=== PATIENT | male | born 1995 | race Hispanic/Latino ===

== ENCOUNTER 2019-06-22 08:12 | Emergency (ER) | payer SELFPAY ==
[2019-06-22] MEDS ORDERED: ASPIRIN 81 MG CHEWABLE TABLET ONE (08:36)
[2019-06-22] MEDS ORDERED: NA CHLORIDE 0.9% 1,000 ML ONE (08:36)
[2019-06-22 08:52] LABS: Absolute Lymphocytes (CBC) 1.9 K/uL (0.7-4.9); Basophils % 0.6 % (0-1.3); Hematocrit 44.3 % (39.6-49.0); Lymphocytes % 23.7 % (15.3-44.8); MPV 8.8 fL (7.6-11.3); RBC Red Blood Cell Count 5.45 M/uL (4.33-5.43)
[2019-06-22 09:06] LABS: Barbiturates NEGATIVE (NEGATIVE); Benzodiazepines NEGATIVE (NEGATIVE); Cocaine NEGATIVE (NEGATIVE); METHAMPHETAM NEGATIVE (NEGATIVE); Methadone NEGATIVE (NEGATIVE); Opiates NEGATIVE (NEGATIVE); Phencyclidine NEGATIVE (NEGATIVE); THC Cannibis POSITIVE (NEGATIVE)
[2019-06-22 09:10] LABS: Protime INR 0.89
[2019-06-22 09:11] LABS: ALT/SGPT 35 U/L (12-78); AST/SGOT 17 U/L (15-37); Alkaline Phosphatase 113 U/L (45-117); BUN Blood Urea Nitrogen 16 mg/dL (7-18); Bicarbonate 26 mmol/L (21-32); Bilirubin Direct < 0.1 mg/dL (0-0.2); Bilirubin Total 0.5 mg/dL (0.2-1.0); Glucose Level 120 mg/dL (74-106); Magnesium 2.2 mg/dL (1.8-2.4); NT PRO-BNP 6 pg/mL (<125); Potassium 4.2 mmol/L (3.5-5.1); Protein, Total 7.5 g/dL (6.4-8.2); Sodium Level 141 mmol/L (136-145); Troponin (Emerg Dept Use Only) < 0.02 ng/mL (0.0-0.045)
--- NOTE | 2019-06-22 09:11 | RAD REPORT ---
EXAM DESCRIPTION: Scott Single View06/22/2019 8:43 am CLINICAL HISTORY: Shortness of breath COMPARISON: 2018 FINDINGS: The lungs appear clear of acute infiltrate. The heart is normal size IMPRESSION: No acute abnormalities displayed
--- NOTE | 2019-06-22 09:25 | ER ---
Nurse's Notes [facility] Name: Justin Pineda Age: 24 yrs Sex: Male : 1995 Arrival Date: 06/22/2019 Time: 08:15 Bed 19 Private MD: Unknown, Unknown Diagnosis: Other chest pain;Essential (primary) hypertension Presentation: 06/22 08:22 Presenting complaint: Sudden SOB and substernal chest pain that woke him up at approx hb 0430 today. Hx of HTN. Denies cough. Transition of care: patient was not received from another setting of care. Onset of symptoms was June 22, 2019 at 04:30. Risk Assessment: Do you want to hurt yourself or someone else? Patient reports no desire to harm self or others. Initial Sepsis Screen: Does the patient meet any 2 criteria? No. Patient's initial sepsis screen is negative. Does the patient have a suspected source of infection? No. Patient's initial sepsis screen is negative. Care prior to arrival: None. 08:22 Method Of Arrival: Ambulatory hb 08:22 Acuity: YOHANA 3 hb Triage Assessment: 08:24 General: Appears in no apparent distress. Behavior is calm, cooperative. Pain: Pain hb currently is 7 out of 10 on a pain scale. EENT: No signs and/or symptoms were reported regarding the EENT system. Neuro: Level of Consciousness is awake, alert, obeys commands, Oriented to person, place, time, situation. Cardiovascular: Reports chest pain, shortness of breath, Heart tones S1 S2 present Capillary refill < 3 seconds Patient's skin is warm and dry. Respiratory: Airway is patent Respiratory effort is even, unlabored, Respiratory pattern is regular, symmetrical, Breath sounds are clear bilaterally. GI: No signs and/or symptoms were reported involving the gastrointestinal system. : No signs and/or symptoms were reported regarding the genitourinary system. Derm: Skin is intact, is healthy with good turgor, Skin is pink, warm \T\ dry. Musculoskeletal: No signs and/or symptoms reported regarding the musculoskeletal system. Historical: - Allergies: 08:24 No Known Allergies; hb - Home Meds: 08:24 unknown HTN med [Active]; hb - PMHx: 08:24 Hypertension; hb - PSHx: 08:24 None; hb - Immunization history:: Adult Immunizations up to date. - Social history:: Smoking status: Patient/guardian denies using tobacco. - Ebola Screening: : No symptoms or risks identified at this time. - Family history:: not pertinent. Screenin:26 Abuse screen: Denies threats or abuse. Denies injuries from another. Nutritional hb screening: No deficits noted. Tuberculosis screening: No symptoms or risk factors identified. Fall Risk None identified. Assessment: 08:26 General: see triage assessment. hb Vital Signs: 08:25 BP 159 / 91; Pulse 91; Resp 16; Temp 98.2; Pulse Ox 100% on R/A; Weight 81.65 kg; hb Height 5 ft. 9 in. (175.26 cm); Pain 7/10; 09:32 BP 135 / 80; Pulse 77; Resp 16; Temp 98.2; Pulse Ox 100% on R/A; sg 09:50 BP 130 / 77; Pulse 70; Resp 16; Pulse Ox 100% on R/A; Pain 2/10; sg 08:25 Body Mass Index 26.58 (81.65 kg, 175.26 cm) hb ED Course: 08:15 Patient arrived in ED. ag5 08:15 Unknown, Unknown is Private Physician. ag5 08:16 Reji Merlos MD is Attending Physician. james 08:22 Phyllis Meng, RN is Primary Nurse. hb 08:23 Triage completed. hb 08:25 Arm band placed on. hb 08:26 Patient has correct armband on for positive identification. Bed in low position. Call hb light in reach. Side rails up X 1. monitoring analyst on. Pulse ox on. NIBP on. 08:26 Patient maintains SpO2 saturation greater than 95% on room air. hb 08:37 Primary Nurse role handed off by Phyllis Meng, RN sg 08:37 Jean-Claude Mccray, RN is Primary Nurse. sg 08:43 Inserted saline lock: 20 gauge in right antecubital area, using aseptic technique. hb Blood collected. 08:45 XRAY Chest (1 view) In Process Unspecified. EDMS 08:50 Urine collected: clean catch specimen, clear, sujata colored, EKG done, by test tech. [email or web address] reviewed by Reji Merlos MD. 08:53 EKG done, by test tech. reviewed by Reji Merlos MD. tc 09:23 Farhan Cordova MD is Referral Physician. james 09:48 Awaiting transportation. sg 09:48 No provider procedures requiring assistance completed. IV discontinued, intact, sg bleeding controlled, No redness/swelling at site. Pressure dressing applied. Administered Medications: 08:47 Drug: NS 0.9% 1000 ml Route: IV; Rate: 125 ml/hr; Site: right antecubital; hb 08:47 Drug: Aspirin Chewable Tablet 162 mg Route: PO; hb 09:48 Not Given (Physician Discretion): Norvasc 5 mg PO once sg Outcome: 09:23 Discharge ordered by . james 09:48 Discharged to home ambulatory, with family. sg 09:48 Condition: good 09:48 Discharge instructions given to patient, Instructed on discharge instructions, follow up and referral plans. medication usage, safety practices, Demonstrated understanding of instructions, follow-up care, medications, Prescriptions given X 1, assistance via [employer] with Mary Carmen #[id number] 09:56 Patient left the ED. sg Signatures: Dispatcher [employer] EDJuwan Resendez [email or web address] Jean-Claude Mccray RN RN Reji Skelton MD MD cha Callis, Tiffany, port warden EKG Ttc Phyllis Meng RN RN Keith, Saniya ag5
[2019-06-22] MEDS ORDERED: AMLODIPINE 5 MG TAB ONE (09:26)
--- NOTE | 2019-06-22 09:26 | EDPHYS ---
Physician Documentation [facility] Name: Justin Pineda Age: 24 yrs Sex: Male : 1995 Arrival Date: 06/22/2019 Time: 08:15 Bed 19 Private MD: Unknown, Unknown ED Physician Reji Merlos HPI: 06/22 08:32 This 24 yrs old Male presents to ER via Ambulatory with complaints of Chest james Pain, Breathing Difficulty. 08:32 The patient or guardian reports chest pain that is located primarily in the anterior [facility] chest wall. The pain does not radiate. Associated signs and symptoms: Pertinent positives: shortness of breath. The chest pain is described as sharp. Modifying factors: The symptoms are alleviated by nothing. Severity of pain: At its worst the pain was mild in the emergency department the pain is unchanged. The patient has experienced similar episodes in the past, several times. Historical: - Allergies: 08:24 No Known Allergies; hb - Home Meds: 08:24 unknown HTN med [Active]; hb - PMHx: 08:24 Hypertension; hb - PSHx: 08:24 None; hb - Immunization history:: Adult Immunizations up to date. - Social history:: Smoking status: Patient/guardian denies using tobacco. - Ebola Screening: : No symptoms or risks identified at this time. - Family history:: not pertinent. ROS: 08:32 Constitutional: Negative for fever, chills, and weight loss, Eyes: Negative for injury, james pain, redness, and discharge, ENT: Negative for injury, pain, and discharge, Neck: Negative for injury, pain, and swelling, Respiratory: Negative for shortness of breath, cough, wheezing, and pleuritic chest pain, Abdomen/GI: Negative for abdominal pain, nausea, vomiting, diarrhea, and constipation, Back: Negative for injury and pain, : Negative for injury, bleeding, discharge, and swelling, MS/Extremity: Negative for injury and deformity, Skin: Negative for injury, rash, and discoloration, Neuro: Negative for headache, weakness, numbness, tingling, and seizure, Psych: Negative for depression, anxiety, suicide ideation, homicidal ideation, and hallucinations, Allergy/Immunology: Negative for hives, rash, and allergies, Endocrine: Negative for neck swelling, polydipsia, polyuria, polyphagia, and marked weight changes, Hematologic/Lymphatic: Negative for swollen nodes, abnormal bleeding, and unusual bruising. 08:32 Cardiovascular: Positive for chest pain. Exam: 08:32 Constitutional: This is a well developed, well nourished patient who is awake, alert, james and in no acute distress. Head/Face: Normocephalic, atraumatic. Eyes: Pupils equal round and reactive to light, extra-ocular motions intact. Lids and lashes normal. Conjunctiva and sclera are non-icteric and not injected. Cornea within normal limits. Periorbital areas with no swelling, redness, or edema. ENT: Nares patent. No nasal discharge, no septal abnormalities noted. Tympanic membranes are normal and external auditory canals are clear. Oropharynx with no redness, swelling, or masses, exudates, or evidence of obstruction, uvula midline. Mucous membranes moist. Neck: Trachea midline, no thyromegaly or masses palpated, and no cervical lymphadenopathy. Supple, full range of motion without nuchal rigidity, or vertebral point tenderness. No Meningismus. Chest/axilla: Normal chest wall appearance and motion. Nontender with no deformity. No lesions are appreciated. Cardiovascular: Regular rate and rhythm with a normal S1 and S2. No gallops, murmurs, or rubs. Normal PMI, no JVD. No pulse deficits. Respiratory: Lungs have equal breath sounds bilaterally, clear to auscultation and percussion. No rales, rhonchi or wheezes noted. No increased work of breathing, no retractions or nasal flaring. Abdomen/GI: Soft, non-tender, with normal bowel sounds. No distension or tympany. No guarding or rebound. No evidence of tenderness throughout. Back: No spinal tenderness. No costovertebral tenderness. Full range of motion. Male : Normal genitalia with no discharge or lesions. Skin: Warm, dry with normal turgor. Normal color with no rashes, no lesions, and no evidence of cellulitis. MS/ Extremity: Pulses equal, no cyanosis. Neurovascular intact. Full, normal range of motion. Neuro: Awake and alert, GCS 15, oriented to person, place, time, and situation. Cranial nerves II-XII grossly intact. Motor strength 5/5 in all extremities. Sensory grossly intact. Cerebellar exam normal. Normal gait. Psych: Awake, alert, with orientation to person, place and time. Behavior, mood, and affect are within normal limits. 08:35 Musculoskeletal/extremity: DVT Exam: No signs of deep vein thrombosis. no pain, no james swelling, no tenderness, negative Homans' sign noted on exam, no appreciated bluish discoloration, no erythema, no increased warmth. Vital Signs: 08:25 BP 159 / 91; Pulse 91; Resp 16; Temp 98.2; Pulse Ox 100% on R/A; Weight 81.65 kg; hb Height 5 ft. 9 in. (175.26 cm); Pain 7/10; 09:32 BP 135 / 80; Pulse 77; Resp 16; Temp 98.2; Pulse Ox 100% on R/A; sg 09:50 BP 130 / 77; Pulse 70; Resp 16; Pulse Ox 100% on R/A; Pain 2/10; sg 08:25 Body Mass Index 26.58 (81.65 kg, 175.26 cm) hb MDM: 08:17 Patient medically screened. [facility] 08:35 Data reviewed: vital signs, nurses notes, lab test result(s), EKG, radiologic studies, [facility] plain films. 06/22 08:32 Order name: Basic Metabolic Panel; Complete Time: 09:21 [facility] 06/22 08:32 Order name: CBC with Diff [facility] 06/22 08:32 Order name: LFT's; Complete Time: 09:21 [facility] 06/22 08:32 Order name: Magnesium; Complete Time: 09:21 [facility] 06/22 08:32 Order name: NT PRO-BNP; Complete Time: 09:21 [facility] 06/22 08:32 Order name: PT-INR; Complete Time: 09:21 [facility] 06/22 08:32 Order name: Troponin (emerg Dept Use Only); Complete Time: 09:21 [facility] 06/22 08:32 Order name: XRAY Chest (1 view) [facility] 06/22 08:32 Order name: D-Dimer; Complete Time: 09:21 [facility] 06/22 08:32 Order name: UDS [facility] 06/22 08:55 Order name: Urine Dipstick--Ancillary (enter results) em1 06/22 08:32 Order name: EKG; Complete Time: 08:35 [facility] 06/22 08:32 Order name: Cardiac monitoring; Complete Time: 08:43 [facility] 06/22 08:32 Order name: EKG - Nurse/Tech; Complete Time: 08:43 [facility] 06/22 08:32 Order name: IV Saline Lock; Complete Time: 08:42 [facility] 06/22 08:32 Order name: Labs collected and sent; Complete Time: 08:43 [facility] 06/22 08:32 Order name: O2 Per Protocol; Complete Time: 08:43 [facility] 06/22 08:32 Order name: O2 Sat Monitoring; Complete Time: 08:43 [facility] Administered Medications: 08:47 Drug: NS 0.9% 1000 ml Route: IV; Rate: 125 ml/hr; Site: right antecubital; hb 08:47 Drug: Aspirin Chewable Tablet 162 mg Route: PO; hb 09:48 Not Given (Physician Discretion): Norvasc 5 mg PO once sg Disposition: 06/22/19 09:23 Discharged to Home. Impression: Other chest pain, Essential (primary) hypertension. - Condition is Stable. - Discharge Instructions: Nonspecific Chest Pain, Chest Wall Pain, Hypertension, Aspirin and Your Heart. - Prescriptions for Norvasc 5 mg Oral Tablet - take 1 tablet by ORAL route once daily; 20 tablet. - Work release form, Medication Reconciliation Form, Thank You Letter, Antibiotic Education, Prescription Opioid Use form. - Follow up: Private Physician; When: 2 - 3 days; Reason: Recheck today's complaints, Continuance of care, Re-evaluation by your physician. Follow up: Farhan Cordova; When: 2 - 3 days; Reason: Recheck today's complaints, Re-evaluation by your physician. - Problem is new. - Symptoms have improved. Signatures: Dispatcher [employer] EDND Jean-Claude Mccray RN RN sg Anderson, Corey, MD MD cha Baxter, Heather, RN RN Corrections: (The following items were deleted from the chart) 09:56 09:23 06/22/2019 09:23 Discharged to Home. Impression: Other chest pain; Essential sg (primary) hypertension. Condition is Stable. Discharge Instructions: Nonspecific Chest Pain, Chest Wall Pain, Hypertension, Aspirin and Your Heart. Prescriptions for Norvasc 5 mg Oral Tablet - take 1 tablet by ORAL route once daily; 20 tablet. and Forms are Medication Reconciliation Form, Thank You Letter, Antibiotic Education, Prescription Opioid Use. Follow up: Private Physician; When: 2 - 3 days; Reason: Recheck today's complaints, Continuance of care, Re-evaluation by your physician. Follow up: Farhan Cordova; When: 2 - 3 days; Reason: Recheck today's complaints, Re-evaluation by your physician. Problem is new. Symptoms have improved. james
[2019-06-22 12:44] LABS: Urine Blood NEGATIVE (NEG); Urine Glucose NEGATIVE (NEG); Urine Protein NEGATIVE (NEG); Urine Specific Gravity >1.030 (1.005-1.030); Urine pH 5.5 (5.0-7.0)
--- NOTE | 2019-06-22 17:35 | EKG ---
Test Date: 2019-06-22 Test Time: 08:42:14 Compressor Operator: LUDMILA MEASUREMENT RESULTS: Intervals: Rate: 91 NM: 134 QRSD: 106 QT: 352 QTc: 432 [place]: P: 61 NM: 134 QRS: 36 T: 33 INTERPRETIVE STATEMENTS: Normal sinus rhythm Normal ECG Compared to ECG 07/10/2018 09:36:57 No significant changes Electronically Signed On 06-22-19 17:33:55 CDT by Farhan Cordova
== END 2019-06-22 09:56 | disposition home or self-care (01) ==
LOC: ER 08:12
DX: I10 Essential (primary) hypertension (principal)
CPT/HCPCS: 36415; 71045; 80048; 80076; 80307; 81003; 83735; 83880; 84484; 85025; 85379; 85610; 93005; 99285; J7030